=== PATIENT | female | born 1965 | race Hispanic/Latino ===

== ENCOUNTER 2018-07-17 08:25 | Day surgery (SDC) | payer OTHER ==
[~2018-07-17 08:25] MED LIST: NACL 0.9% 1000 ML 1,000 ML IV SCH; VANCOMYCIN/NS 1 GM/250 ML 1 GM/250 ML BAG IV NR
[2018-07-17 09:08] LABS: Basophils % (Auto) 0.4 % (0.0-1.8); Eosinophils # (Auto) 0.1 K/mm3 (0.0-0.4); Eosinophils % (Auto) 1.9 % (0.0-4.3); Hematocrit 42.1 % (30.3-42.9); Hemoglobin 14.3 gm/dl (10.1-14.3); Lymphocytes # (Auto) 1.5 K/mm3 (1.2-5.4); Lymphocytes % (Auto) 26.4 % (13.4-35.0); Mean Corpuscular HGB Conc 34 % (30-34); Mean Corpuscular Hemoglobin 31 pg (28-32); Mean Corpuscular Volume 92 fl (79-97); Monocytes # (Auto) 0.3 K/mm3 (0.0-0.8); Monocytes % (Auto) 5.5 % (0.0-7.3); Platelet Count 250 K/mm3 (140-440)
[2018-07-17 09:17] LABS: INR 0.91 (0.87-1.13)
[2018-07-17 09:18] LABS: Partial Thromboplastin Time 27.5 Sec. (24.2-36.6)
[2018-07-17 09:23] LABS: BUN/Creatinine Ratio 17; Blood Urea Nitrogen 15 mg/dL (7-17); Calcium 8.7 mg/dL (8.4-10.2); Hemolysis Index 38
[2018-07-17] MEDS ORDERED: HEPARIN 10,000 UNITS/10 ML ONE (10:13)
[2018-07-17] MEDS ORDERED: TORADOL ONE (10:13)
[2018-07-17] MEDS ORDERED: HEPARIN/NS 5000 UNIT/500ML(CATH LAB) 1,000 ML IR ONE (10:13)
[2018-07-17] MEDS: VERSED ONE ×3 (10:43→11:08)
[2018-07-17] MEDS: SUBLIMAZE ONE ×2 (10:43→10:55)
[2018-07-17] MEDS: XYLOCAINE 2% INFILTRATI ONE ×2 (10:46→10:48)
--- NOTE | 2018-07-17 11:19 | Short Stay Summary ---
Short Stay Documentation Date of service: 07/17/18 - History Principal diagnosis: compression of vein H&P: obtained from office - Allergies and Medications Current Medications: Allergies Penicillins Allergy (Verified 07/17/18 08:38) Itching Home Medications Medication Instructions Recorded Confirmed Last Taken Type PARoxetine HCl [PARoxetine] 40 mg PO DAILY 07/17/18 07/17/18 07/16/18 History 40mg Pravastatin Sodium [Pravastatin] 10 mg PO DAILY 07/17/18 07/17/18 07/16/18 History 10mg SUMAtriptan SUCCINATE [Imitrex] 100 mg PO DAILY PRN 07/17/18 07/17/18 07/10/18 History 100mg traZODone [Desyrel] 50 mg PO DAILY 07/17/18 07/17/18 07/16/18 History 50mg Active Medications Sodium Chloride (Nacl 0.9% 1000 Ml) 1,000 mls @ 42 mls/hr IV DIRECT [place] Last Admin: 07/17/18 09:28 Dose: 42 mls/hr Vancomycin HCl (Vancomycin/Ns 1 Gm/250 Ml) 1 gm in 250 mls @ 166.667 mls/hr IV PREOP NR; Protocol Stop: 07/17/18 23:59 Last Admin: 07/17/18 09:52 Dose: 166.667 mls/hr - Brief post op/procedure progress note Date of procedure: 07/17/18 Pre-op diagnosis: compression of vein Post-op diagnosis: same Procedure: Bilateral lower extremity venogram, intravascular ultrasound, venoplasty with stent placement Anesthesia: local Surgeon: BALJIT MCGARRY Estimated blood loss: minimal Pathology: none Condition: stable - Disposition Condition at discharge: Good Disposition: [id number] TO HOME OR SELFCARE Short Stay Discharge Plan Activity: advance as tolerated Weight Bearing Status: Weight Bear as Tolerated Diet: regular Wound: keep clean and dry, per your surgeon's advice Follow up with: PATIENCE ACOSTA MD [Primary Care Provider] - 7 Days
--- NOTE | 2018-07-17 11:26 | Operative Report ---
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 The patient was brought to the injury graphic suite and placed in supine position on the examination table. Initial ultrasound evaluation of her veins demonstrated patent femoral veins bilaterally. The patient's bilateral legs were prepped and draped in the usual sterile fashion. 1% lidocaine was used for anesthesia. Under ultrasound guidance, the right femoral vein proximally was cannulated with a 7 cm 18-gauge needle. A 0.035 guidewire was advanced centrally under fluoroscopy. The needle was removed and a 5 Afghan sheath placed. Access to the left proximal femoral vein was obtained in a similar fashion and a second 5 Afghan sheath placed. A C2 cobra catheter was advanced over the guidewire through the sheath until the supra-renal inferior vena cava the guidewire was exchanged for a Glidewire and the left renal vein cannulated. Contrast was injected into the left renal vein which demonstrated prompt drainage into the IVC with no extrinsic compression. The risks and opacification of the left gonadal vein however, it measures only 1-2 mm in diameter. The guidewire was again reinserted and the catheter removed. Bilateral lower extremity venogram was then performed to the sheaths and the groin. This demonstrated significant compression of the left common iliac vein and right external iliac vein. Decision was made to further evaluate with intravascular ultrasound. The sheaths were upsized to 10 Afghan sheaths bilaterally over the guidewires. Intravascular ultrasound was performed through the right sheath from the IVC to the sheath insertion site. Imaged vessels include the IVC, right common iliac vein, right external iliac vein and right common femoral vein. The IVC, a common iliac vein and right common femoral vein are patent. There is 60-70% stenosis involving the right external iliac vein with artery crosses the vein. Intravascular ultrasound was then performed through the left sheath from the IVC to the insertion site. Imaged vessels include the left common iliac vein, left external iliac vein and left common femoral vein. There is 80-90% stenosis of the left common iliac vein. The left external iliac vein and left common femoral vein are patent. Decision was made to treat these lesions. A 16 x 90 mm last stent was advanced through the right sheath. A 16 x 90 mm Wallstent was advanced through the left sheath. The stents were deployed increasing fashion with the distal aspect of the stents just above the bifurcation and IVC. This allowed support for both stents as well as crossing of both lesions. The stents were then seated using 14 mm balloons. Post stent placement imaging demonstrated reduction of both stenoses to less than 10%. At this point, the guidewires and sheaths were removed and hemostasis achieved using manual compression. Sterile compression dressings were then applied. The patient tolerated the procedure well. There were no immediate post procedure complications. Conscious sedation was performed under the guidance of radiologic nursing. Continuous cardiopulmonary monitoring was utilized. Impression: 1) Bilateral lower extremity venogram demonstrating significant compression of the left common iliac vein at its origin and the right external iliac vein were the artery crosses both veins. 2) Intravascular ultrasound of the IVC, right common iliac vein, right external iliac vein, right common femoral vein, left common iliac vein, left external iliac vein and left common femoral vein demonstrating 80-90% stenosis in the left common iliac vein and 60- 70% stenosis involving the right external iliac vein. 3) Treatment of these lesions with stents as described with residual less than 10% stenosis. 4) Evaluation and second-order catheter selection of the left renal vein demonstrating a normal-appearing left gonadal vein.
[2018-07-17 12:19] VITALS: BP 97/55
== END 2018-07-17 12:37 | disposition home or self-care (01) ==
LOC: CATHLABREC 08:25
PROVIDERS: ATTEND Radiology Diagnostic Radiology
DX: I87.1 Compression of vein (principal); I87.303 Chronic venous hypertension (idiopathic) without complications of bilateral lower extremity; F17.210 Nicotine dependence, cigarettes, uncomplicated; J45.909 Unspecified asthma, uncomplicated; E78.00 Pure hypercholesterolemia, unspecified; M19.90 Unspecified osteoarthritis, unspecified site; F41.9 Anxiety disorder, unspecified; Z98.890 Other specified postprocedural states; Z98.891 History of uterine scar from previous surgery; Z88.0 Allergy status to penicillin; Z79.899 Other long term (current) drug therapy
CPT/HCPCS: 36415; 37238; 37239; 37252; 37253; 75822; 76937; 80048; 85025; 85610; 85730; 99156; 99157; C1725; C1753; C1769; C1876; C1894; J1644; J1885; J2250; J3010; J3370; J7030; Q9967